=== PATIENT | female | born 1995 | race Caucasian/White ===

== ENCOUNTER 2017-03-11 09:58 | Emergency (ER) | payer BC, OTHER ==
[2017-03-11 10:12] VITALS: BP 138/95
--- NOTE | 2017-03-11 10:53 | UC ---
Throat Pain/Nasal [place] HPI - HPI Summary HPI Summary: feeling ill for one week worsening sore throat and fatigue yesterday and slept for 24 hours - History of Current Complaint Chief Complaint: UCGeneralIllness Stated Complaint: SORE THROAT COUGH Time Seen by Provider: 03/11/17 10:50 Hx Obtained From: Patient Hx Last Menstrual Period: depo ?: No Onset/Duration: Sudden Onset, Lasting Days - 6-7, Worse Since - 1 day Severity: Moderate Pain Intensity: 5 Pain Scale Used: 0-10 Numeric Cough: None Associated Signs & Symptoms: Positive: Negative - Allergies/Home Medications Allergies/Adverse Reactions: Allergies Allergy/AdvReac Type Severity Reaction Status Date / Time No Known Allergies Allergy Verified 03/11/17 10:06 PMH/Surg Hx/FS Hx/Imm Hx Previously Healthy: Yes - Surgical History Surgical History: None - Family History Known Family History: Positive: None Family History: no cardio vascular issues reported in family lineage - Social History Occupation: Employed Part-time, Student Lives: With Family Alcohol Use: Occasionally Substance Use Type: None Smoking Status (MU): Never Smoked Tobacco Have You Smoked in the Last Year: No Household Exposure Type: Cigarettes Review of Systems Constitutional: Negative Skin: Negative Eyes: Negative ENT: Sore Throat Respiratory: Negative Cardiovascular: Negative Gastrointestinal: Negative Genitourinary: Negative Motor: Negative Neurovascular: Negative Musculoskeletal: Negative Neurological: Negative Psychological: Negative All Other Systems Reviewed And Are Negative: Yes Physical Exam Triage Information Reviewed: Yes Appearance: Well-Appearing, No Pain Distress, Well-Nourished Vital Signs: Initial Vital Signs Temp 98.5 F 03/11/17 10:07 Pulse 69 03/11/17 10:07 Resp 16 03/11/17 10:07 BP 138/95 03/11/17 10:07 Pulse Ox 100 03/11/17 10:07 Vital Signs Reviewed: Yes Eye Exam: Normal Eyes: Positive: Conjunctiva Clear ENT Exam: Normal ENT: Positive: Normal ENT inspection, Hearing grossly normal, Pharyngeal erythema. Negative: Nasal congestion, Nasal drainage, Trismus, Muffled/hoarse voice Dental Exam: Normal Neck exam: Normal Neck: Positive: Supple, Nontender, No Lymphadenopathy Respiratory Exam: Normal Respiratory: Positive: Chest non-tender, Lungs clear, Normal breath sounds, No respiratory distress, No accessory muscle use Cardiovascular Exam: Normal Cardiovascular: Positive: RRR, No Murmur, Pulses Normal, Brisk Capillary Refill Musculoskeletal Exam: Normal Musculoskeletal: Positive: Strength Intact, ROM Intact, No Edema Neurological Exam: Normal Neurological: Positive: Alert, Muscle Tone Normal Psychological Exam: Normal Skin Exam: Normal Throat Pain/Nasal Course/Dx - Course Course Of Treatment: Amoxicillin, ibuprofen rest follow with pcp prn - Differential Dx/Diagnosis Differential Diagnosis/HQI/PQRI: Laryngitis, Pharyngitis, Sinusitis, URI Provider Diagnoses: Strep Pharyngitis Discharge - Discharge Plan Condition: Stable Disposition: HOME Prescriptions: Amoxicillin CAP* [Amoxicillin 500 MG CAP*] 500 mg PO Q12H #20 cap Patient Education Materials: Ibuprofen (By mouth), Amoxicillin (By mouth), Strep Throat (ED) Forms: *School Release, *Work Release Referrals: [facility] [Outside] - If Needed No Primary Care Phys,NOPCP [Primary Care Provider] -
== END 2017-03-11 11:38 | disposition home or self-care (01) ==
LOC: UCEAST 09:58
DX: J02.0 Streptococcal pharyngitis (principal)
CPT/HCPCS: 87651; 99212; G0463

== ENCOUNTER 2017-06-20 10:43 | Emergency (ER) | payer BC ==
[2017-06-20 10:53] VITALS: BP 148/92
--- NOTE | 2017-06-20 10:57 | UC ---
Complaint Female HPI - HPI Summary HPI Summary: pelvic pressure and bloating for 4 days---pressure after urination, no back pain , fevers, chills, nausea or vomiting - History Of Current Complaint Chief Complaint: UCAbdominalPain Stated Complaint: ABD PAIN Time Seen by Provider: 06/20/17 10:47 Hx Obtained From: Patient Hx Last Menstrual Period: depo ?: No Onset/Duration: Sudden Onset, Lasting Days - 4, Still Present Timing: Constant Severity Initially: Mild Severity Currently: Mild Pain Intensity: 4 Pain Scale Used: 0-10 Numeric Character: Burning - /pressure Aggravating Factor(s): Urination Alleviating Factor(s): Nothing Associated Signs And Symptoms: Positive: Negative - Allergies/Home Medications Allergies/Adverse Reactions: Allergies Allergy/AdvReac Type Severity Reaction Status Date / Time No Known Allergies Allergy Verified 06/20/17 10:53 PMH/Surg Hx/FS Hx/Imm Hx Previously Healthy: Yes - Surgical History Surgical History: None - Family History Known Family History: Positive: None Family History: patient is adopted - Social History Occupation: Employed Part-time, Student Lives: Alone Alcohol Use: Occasionally Substance Use Type: None Smoking Status (MU): Never Smoked Tobacco Have You Smoked in the Last Year: No Household Exposure Type: Cigarettes Review of Systems Constitutional: Negative Skin: Negative Eyes: Negative ENT: Negative Respiratory: Negative Cardiovascular: Negative Gastrointestinal: Abdominal Pain - pressure that is worse after voiding Genitourinary: Negative Motor: Negative Neurovascular: Negative Musculoskeletal: Negative Neurological: Negative Psychological: Negative Is Patient Immunocompromised?: No All Other Systems Reviewed And Are Negative: Yes Physical Exam Triage Information Reviewed: Yes Appearance: Well-Appearing, No Pain Distress, Well-Nourished Vital Signs: Initial Vital Signs Temp 98.4 F 06/20/17 10:50 Pulse 66 06/20/17 10:50 Resp 16 06/20/17 10:50 BP 148/92 06/20/17 10:50 Pulse Ox 100 06/20/17 10:50 Vital Signs Reviewed: Yes Eye Exam: Normal Eyes: Positive: Conjunctiva Clear ENT Exam: Normal ENT: Positive: Normal ENT inspection, Hearing grossly normal. Negative: Nasal congestion, Nasal drainage, Trismus, Muffled/hoarse voice Dental Exam: Normal Neck exam: Normal Neck: Positive: Supple, Nontender, No Lymphadenopathy Respiratory Exam: Normal Respiratory: Positive: Chest non-tender, Lungs clear, Normal breath sounds, No respiratory distress, No accessory muscle use Cardiovascular Exam: Normal Cardiovascular: Positive: RRR, No Murmur, Pulses Normal, Brisk Capillary Refill Abdominal Exam: Normal Abdomen Description: Positive: Nontender, No Organomegaly, Soft. Negative: CVA Tenderness (R), CVA Tenderness (L) Bowel Sounds: Positive: Present Musculoskeletal Exam: Normal Musculoskeletal: Positive: Strength Intact, ROM Intact, No Edema Neurological Exam: Normal Neurological: Positive: Alert, Muscle Tone Normal Psychological Exam: Normal Skin Exam: Normal Diagnostics - Radiology No standard instances Xray Interpretation: Positive (See Comments) - consistant with Pelvic Congestion Syndrome Radiology Interpretation Completed By: Radiologist Complaint Female Dx - Course Course Of Treatment: NSAIDS, follow with [facility] for Pelvic Congestion Syndrome and Urology for Hematuria, return for increase or worening of symptoms - Differential Dx/Diagnosis Differential Diagnosis/HQI/PQRI: Ovarian Torsion, Renal Colic, Retained Foreign Body, Ureteral Stone, Urinary Tract Infection Provider Diagnoses: Hematuria, Pelvic Congestion Syndrome Discharge - Discharge Plan Condition: Stable Disposition: HOME Prescriptions: Ibuprofen TAB* [Motrin TAB* 600 MG] 600 mg PO Q6H PRN #30 tab PRN Reason: pelvic pain Patient Education Materials: Hematuria (ED), Pelvic Pain in Women (ED) Referrals: [facility] [Provider Group] - 1 Week [facility] [Provider Group] - 1 Week Additional Instructions: Your Ultra Sound is most consistent with PELVIC CONGESTION SYNDROME. You also had blood in your urine that should be evaluated as well
--- NOTE | 2017-06-20 12:25 | RAD ---
HISTORY: Right lower quadrant pain COMPARISONS: None TECHNIQUE: Multiple transverse and longitudinal ultrasound images were obtained of the pelvis using grayscale, color Doppler, and spectral Doppler imaging using the endovaginal transducer. FINDINGS: UTERUS: The uterus measures 7.4 x 3 x 4.9 cm. The uterus is normal in shape, size, contour, and echotexture. There is prominence of the vasculature along the broad ligaments bilaterally. ENDOMETRIUM: The endometrial stripe is smooth. The endometrium measures 0.2 cm in thickness. CUL-DE-SAC: There is no free fluid within the cul-de-sac. RIGHT OVARY: The right ovary measures 2.3 x 1.4 x 2 cm. Normal arterial and venous waveforms are identifiable within the ovary on spectral Doppler imaging. LEFT OVARY: The left ovary measures 2.7 x 1.5 x 2.2 cm. Normal arterial and venous waveforms are identifiable within the ovary on spectral Doppler imaging. BLADDER: The bladder is not well visualized. OTHER: None IMPRESSION: 1. PROMINENCE OF THE VASCULATURE ALONG THE BROAD LIGAMENTS BILATERALLY. WHILE SPECIFIC, THIS CAN BE ASSOCIATED WITH PELVIC CONGESTION SYNDROME IN THE CORRECT CLINICAL SETTING. 2. OTHERWISE UNREMARKABLE ULTRASOUND OF THE PELVIS
== END 2017-06-20 12:42 | disposition home or self-care (01) ==
LOC: UCEAST 10:43
DX: R31.9 Hematuria, unspecified (principal); N94.89 Other specified conditions associated with female genital organs and menstrual cycle
CPT/HCPCS: 76830; 81003; 84702; 99212; G0463

== ENCOUNTER 2017-11-11 19:37 | Emergency (ER) | payer BC ==
[2017-11-11 19:55] VITALS: BP 137/95
--- NOTE | 2017-11-11 20:21 | UC ---
Sheila Shin Gabriel, scribed for Valentin Mosqueda MD on 11/11/17 at 2008 . Cardiac HPI - HPI Summary HPI Summary: This patient is a 22 year old F presenting to [facility] [place] with a chief complaint of intermittent CP since last night. The patient rates the tight pain 3/10 in severity. Patient reports anxiety. Patient denies recent illness, n/v/d, diaphoresis, SOB, dysuria, BM trouble, and sore throat. Pt states she has been under increased stress due to work. She has been having intermittent CP since August that is brought on by stress. Pt is on a BC shot and is a non smoker. - History of Current Complaint Chief Complaint: UCChestPain Stated Complaint: CHEST COMPLAINT Time Seen by Provider: 11/11/17 19:45 Hx Obtained From: Patient Hx Last Menstrual Period: on control Onset/Duration: Still Present Timing: Intermittent Episodes Lasting: Initial Severity: Mild Current Severity: Mild Pain Intensity: 3 Chest Pain Location: Diffuse Character: Tightness Associated Signs & Symptoms: Positive: Negative - recent illness, n/v/d, diaphoresis, SOB, dysuria, BM trouble, and sore throat., Anxiety - Allergy/Home Medications Allergies/Adverse Reactions: Allergies Allergy/AdvReac Type Severity Reaction Status Date / Time No Known Allergies Allergy Verified 11/11/17 19:55 Home Medications: Home Medications medroxyPROGESTERone ACETATE* [DEPO-Provera*] 11/11/17 [History] PMH/Surg Hx/FS Hx/Imm Hx Previously Healthy: Yes Psychological History: Anxiety - Surgical History Surgical History: None - Family History Known Family History: Positive: Unknown Family History: patient is adopted - Social History Occupation: Employed Full-time Lives: With Family Alcohol Use: Occasionally Substance Use Type: None Smoking Status (MU): Never Smoked Tobacco Have You Smoked in the Last Year: No Household Exposure Type: Cigarettes Review of Systems Cardiovascular: Chest Pain Psychological: Anxious All Other Systems Reviewed And Are Negative: Yes Physical Exam Triage Information Reviewed: Yes Vital Signs: Initial Vital Signs Temp 97.7 F 11/11/17 19:47 Pulse 80 11/11/17 19:47 Resp 16 11/11/17 19:47 BP 137/95 11/11/17 19:47 Pulse Ox 100 11/11/17 19:47 Vital Signs Reviewed: Yes - Additional Comments General: well-appearing, no pain distress Skin: warm, color reflects adequate perfusion, dry Head: normal Eyes: EOMI, ADRIANNA ENT: normal Neck: supple, nontender Respiratory: CTA, breath sounds present Cardiovascular: RRR Abdomen: soft, nontender Bowel: present Musculoskeletal: normal, strength/ROM intact Neurological: normal, sensory/motor intact, A&O x3 Psychological: affect/mood appropriate Diagnostics - EKG Cardiac Rate: Other Rate - EKG done at 1948 Cardiac Rhythm: Sinus: New - Sinus arrhythmia at 75 BPM , Other Rhythm: New - flipped T waves in V 1,2,3 Ectopy: None - Assessment/Plan Course Of Treatment: BP noted and advised to follow up with PCP. DISCUSSED NEED FOR FURTHER WORK UP FOR CHEST PAIN IN THE ED TO ENSURE PERTINENT LABS RESULTS SUCH TROPONIN AND DDIMER ARE CHECKED NOW. PATIENT DECLINED AMBULANCE TO ED. - Clinical Impression Provider Diagnoses: CHEST PAIN. elevated blood pressure without diagnoses of HTN, Discharge - Discharge Plan Condition: Stable Disposition: HOME Patient Education Materials: Chest Pain (ED) Referrals: No Primary Care Phys,NOPCP [Primary Care Provider] - Additional Instructions: GO DIRECTLY TO THE EMERGENCY DEPARTMENT FOR FURTHER EVALUATION OF YOUR CHEST PAIN. Your blood pressure was elevated during today's visit. Please follow up with your primary care provider in 1-2 weeks. The documentation as recorded by the Sheila negron Gabriel accurately reflects the service I personally performed and the decisions made by me, Valentin Mosqueda MD.
== END 2017-11-11 20:20 | disposition home or self-care (01) ==
LOC: UCEAST 19:37
DX: R07.9 Chest pain, unspecified (principal); R03.0 Elevated blood-pressure reading, without diagnosis of hypertension
CPT/HCPCS: 93005; 99212; G0463

== ENCOUNTER 2017-11-12 11:23 | Emergency (ER) | payer BC ==
--- NOTE | 2017-11-12 11:55 | ED ---
HPI Chest Pain - HPI Summary HPI Summary: 22-year-old female presents with chest pain for the past couple days. She states she was seen in urgent care last night and told to come here but she did not. She states her chest pain resolved last night. States feels like anxiety. She threw the center which has and she was having shortness of breath with it. She states it was constant but then yesterday became intermittent. She does states it was sharp in nature. She is on control. She states she's had this before. She denies any swelling or pain in her lower legs. She does not know her family history she is adopted. She has no medical conditions. She does not smoke. Nothing made it better or worse. - History of Current Complaint Chief Complaint: EDGeneral Time Seen by Provider: 11/12/17 11:29 Hx Last Menstrual Period: on control Pain Intensity: 0 - Allergy/Home Medications Allergies/Adverse Reactions: Allergies Allergy/AdvReac Type Severity Reaction Status Date / Time No Known Allergies Allergy Verified 11/11/17 19:55 PMH/Surg Hx/FS Hx/Imm Hx Endocrine/Hematology History: Denies: Hx Diabetes, Hx Thyroid Disease Cardiovascular History: Denies: Hx Hypertension Respiratory History: Denies: Hx Asthma, Hx Chronic Obstructive Pulmonary Disease (COPD) GI History: Denies: Hx Ulcer Psychiatric History: Reports: Hx Depression Denies: Hx Eating Disorder, Hx of Violent Episodes Against Others Infectious Disease History: No Infectious Disease History: Denies: Hx Clostridium Difficile, Hx Hepatitis, Hx Human Immunodeficiency Virus (HIV), Hx of Known/Suspected MRSA, Hx Shingles, Hx Tuberculosis, Hx Known/ Suspected VRE, Hx Known/Suspected VRSA, History Other Infectious Disease, Traveled Outside the [place] in Last 30 Days - Family History Known Family History: Positive: None, Unknown Family History: patient is adopted - Social History Alcohol Use: Occasionally Substance Use Type: Reports: None Smoking Status (MU): Never Smoked Tobacco Have You Smoked in the Last Year: No Review of Systems Negative: Fever Positive: Chest Pain - resolved Positive: Shortness Of Breath - resolved. Negative: Cough All Other Systems Reviewed And Are Negative: Yes Physical Exam Triage Information Reviewed: Yes Vital Signs On Initial Exam: Initial Vitals Temp Pulse Resp BP Pulse Ox 98.2 F 65 20 122/84 100 11/12/17 11:25 11/12/17 11:25 11/12/17 11:25 11/12/17 11:25 11/12/17 11:25 Vital Signs Reviewed: Yes Appearance: Positive: Well-Appearing Skin: Positive: Warm, Dry Head/Face: Positive: Normal Head/Face Inspection Eyes: Positive: Normal, Conjunctiva Clear Respiratory/Lung Sounds: Positive: Clear to Auscultation, Breath Sounds Present , Other - no reproducible chest pain Cardiovascular: Positive: Normal, RRR Abdomen Description: Positive: Nontender, Soft Bowel Sounds: Positive: Present Musculoskeletal: Positive: Normal Neurological: Positive: Normal Psychiatric: Positive: Normal Diagnostics - Vital Signs Vital Signs Temp Pulse Resp BP Pulse Ox 11/12/17 11:25 98.2 F 65 20 122/84 100 - Laboratory Result Diagrams: 11/12/17 11:49 11/12/17 11:49 Lab Statement: Any lab studies that have been ordered have been reviewed, and results considered in the medical decision making process. - EKG No standard instances Cardiac Rate: Bradycardia EKG Rhythm: Sinus Bradycardia EKG Interpretation: normal sinus bradycardia Chest Pain Course/Dx - Course Course Of Treatment: 22-year-old female presents with chest pain for the past couple days. She states she was seen in urgent care last night and told to come here but she did not. She states her chest pain resolved last night. States feels like anxiety. She threw the center which has and she was having shortness of breath with it. She states it was constant but then yesterday became intermittent. She does states it was sharp in nature. She is on control. She states she's had this before. She denies any swelling or pain in her lower legs. She does not know her family history she is adopted. She has no medical conditions. She does not smoke. Nothing made it better or worse. On exam lungs clear to auscultation. Abdomen soft nontender. Heart regular rate and rhythm. EKG shows sinus bradycardia. troponin neg. d dimer neg. since has been sx free for greater than 6 hours okay with just one troponin. will give referral to primary. patient understand and agrees with plan. - Chest Pain Differential Diagnosis/HQI/PQRI: Acute HI, Chest Wall, Pulmonary Embolism - Diagnoses Provider Diagnoses: Chest pain Discharge - Discharge Plan Condition: Good Disposition: HOME Patient Education Materials: Noncardiac Chest Pain (ED) Referrals: [facility] [place] [facility] REFERRAL [Outside] Additional Instructions: Establish care with primary Return to ED if develop any new or worsening symptoms
[2017-11-12 12:08] LABS: ABS Basophils 0 10^3/ul (0-0.2); ABS Eosinophils 0.1 10^3/ul (0-0.6); ABS Lymphocytes 2.2 10^3/ul (1.0-4.8); ABS Monocytes 0.3 10^3/ul (0-0.8); ABS Neutrophils 1.7 10^3/ul (1.5-7.7); ABS Nucleated RBC 0 10^3/ul; Hematocrit 40 % (35-47); Hemoglobin 13.7 g/dl (12.0-16.0); Mean Corpuscular HGB Conc 34 g/dl (31-36); Mean Corpuscular Hemoglobin 31 pg (27-31); Mean Corpuscular Volume 90 fL (80-97); Mean Platelet Volume 7 um3 (7.4-10.4); Nucleated Red Blood Cells % 0.1; Platelet Count 175 10^3/ul (150-450); Red Blood Count 4.43 10^6/ul (4.0-5.4); Red Cell Distribution Width 12 % (10.5-15); White Blood Count 4.4 10^3/ul (3.5-10.8)
[2017-11-12 12:25] LABS: EGFR Non-African American 68.7 (>60)
[2017-11-12 14:39] VITALS: BP 134/77
== END 2017-11-12 13:40 | disposition home or self-care (01) ==
LOC: ED 11:23
DX: R07.9 Chest pain, unspecified (principal)
CPT/HCPCS: 36415; 80053; 84484; 85025; 85379; 93005; 99282

== ENCOUNTER 2018-02-02 10:13 | Emergency (ER) | payer BC ==
[2018-02-02 10:32] VITALS: BP 126/85
--- NOTE | 2018-02-02 10:48 | UC ---
UC General HPI - HPI Summary HPI Summary: Patient presents with 11 day onset of various symptoms, she complains of subjective fevers, sore throat, stuffy nose, with 2 days of nausea and then vomiitng, which has now just become some nausea, generalized joint pain, and muscle pain. She states that she has increased fatigue. She denies any chest pain, cough, abdominal pain, dysuria, or hematuria. Denies any recent travel, or know ill contacts. - History of Current Complaint Chief Complaint: UCRespiratory Stated Complaint: FLU LIKE SYMPTOMS Time Seen by Provider: 02/02/18 10:21 Hx Obtained From: Patient Hx Last Menstrual Period: ON DEPO Onset/Duration: Gradual Onset, Lasting Days Onset Severity: Moderate Current Severity: Mild Pain Intensity: 0 Associated Signs & Symptoms: Positive: Nausea, Vomiting - Allergy/Home Medications Allergies/Adverse Reactions: Allergies Allergy/AdvReac Type Severity Reaction Status Date / Time No Known Allergies Allergy Verified 02/02/18 10:23 PMH/Surg Hx/FS Hx/Imm Hx Previously Healthy: Yes - Surgical History Surgical History: None - Family History Known Family History: Positive: None, Unknown Family History: patient is adopted - Social History Occupation: Employed Part-time, Student Lives: Alone Alcohol Use: Occasionally Substance Use Type: None Smoking Status (MU): Never Smoked Tobacco Have You Smoked in the Last Year: No Household Exposure Type: Cigarettes Review of Systems Constitutional: Fever, Fatigue Skin: Negative Eyes: Negative ENT: Sore Throat Respiratory: Negative Cardiovascular: Negative Gastrointestinal: Vomiting, Nausea Genitourinary: Negative Motor: Negative Neurovascular: Negative Musculoskeletal: Negative Neurological: Negative Psychological: Negative Is Patient Immunocompromised?: No All Other Systems Reviewed And Are Negative: Yes Physical Exam Triage Information Reviewed: Yes Appearance: Well-Appearing Vital Signs: Initial Vital Signs Temp 99.0 F 02/02/18 10:26 Pulse 68 02/02/18 10:26 Resp 16 02/02/18 10:26 BP 126/85 02/02/18 10:26 Pulse Ox 100 02/02/18 10:26 Vital Signs Reviewed: Yes Eye Exam: Normal ENT Exam: Normal Neck exam: Normal Neck: Positive: 1 Respiratory Exam: Normal Cardiovascular Exam: Normal Abdominal Exam: Normal Musculoskeletal Exam: Normal Neurological Exam: Normal Psychological Exam: Normal Skin Exam: Normal Course/Dx - Course Course Of Treatment: Patient presents with 11 day onset of various symptoms that have occurred over these days. She presents with normal vital signs, and has a nontoxic appearance. Influenza test was negative. I feel her symtpms most likely are from a viral syndrome, and I told her to rest, increase fluids, and take tylenol and or advil for myalgia and if her symtpoms worsen, persist or new symptoms develop she was told to go to the ER and or follow up with PCP. - Differential Dx - Multi-Symptom Differential Diagnoses: Other - Viral synrome Provider Diagnoses: Viral syndrome Discharge - Sign-Out/Discharge Documenting (check all that apply): Discharge/Admit/Transfer - Discharge Plan Condition: Stable Disposition: HOME Prescriptions: Ondansetron TAB* [Zofran 4 MG Tab*] 4 mg PO Q6H PRN #14 tab PRN Reason: Nausea Patient Education Materials: Viral Syndrome (ED) Referrals: No Primary Care Phys,NOPCP [Primary Care Provider] - - Billing Disposition and Condition Condition: STABLE Disposition: HOME
== END 2018-02-02 10:55 | disposition home or self-care (01) ==
LOC: UCEAST 10:13
DX: B34.9 Viral infection, unspecified (principal)
CPT/HCPCS: 87502; 99212; G0463

== ENCOUNTER 2019-03-06 08:06 | Emergency (ER) | payer BC ==
[2019-03-06 08:13] VITALS: BP 121/81
--- NOTE | 2019-03-06 09:21 | UC ---
Complaint Female HPI - HPI Summary HPI Summary: 3 DAYS OF DYSURIA, URINARY FREQUENCY AND URGENCY. NO FEVER, NAUSEA OR BACK PAIN. - History Of Current Complaint Chief Complaint: UCGU Stated Complaint: URINARY ISSUE Time Seen by Provider: 03/06/19 09:14 Hx Obtained From: Patient Hx Last Menstrual Period: 02/28/19 Onset/Duration: Gradual Onset, Lasting Days, Still Present Severity Initially: Moderate Severity Currently: Moderate Pain Intensity: 4 Pain Scale Used: 0-10 Numeric Character: Burning Aggravating Factor(s): Urination Alleviating Factor(s): Nothing Associated Signs And Symptoms: Negative: Fever, Back Pain, Vaginal Bleeding/ Discharge, Nausea - Allergies/Home Medications Allergies/Adverse Reactions: Allergies Allergy/AdvReac Type Severity Reaction Status Date / Time No Known Allergies Allergy Verified 03/06/19 08:14 PMH/Surg Hx/FS Hx/Imm Hx Previously Healthy: Yes - Surgical History Surgical History: None - Family History Known Family History: Positive: Unknown Family History: patient is adopted - Social History Alcohol Use: Occasionally Substance Use Type: None Smoking Status (MU): Never Smoked Tobacco Have You Smoked in the Last Year: No Household Exposure Type: Cigarettes Review of Systems All Other Systems Reviewed And Are Negative: Yes Constitutional: Positive: Negative Respiratory: Positive: Negative Cardiovascular: Positive: Negative Gastrointestinal: Positive: Negative Genitourinary: Positive: Dysuria, Frequency, Urgency Physical Exam Triage Information Reviewed: Yes Appearance: Well-Appearing, No Pain Distress, Well-Nourished Vital Signs: Initial Vital Signs Temp 97.3 F 03/06/19 08:10 Pulse 65 03/06/19 08:10 Resp 16 03/06/19 08:10 BP 121/81 03/06/19 08:10 Pulse Ox 100 03/06/19 08:10 Laboratory Tests 03/06/19 03/06/19 08:29 08:34 POC Urine Color Light yellow POC Urine Clarity Slightly cloudy POC Urine pH 6.0 POC Ur Specif [place] <= 1.005 L POC Urine Protein Negative POC Ur Glucose (UA) Negative POC Urine Ketones Negative POC Urine Blood Trace-intact A POC Urine Nitrite Negative POC Urine Bilirubin Negative POC Urine Urobilinogen 0.2 POC U Leukocyte Esteras 2+ A POC Ur Test Negative Eyes: Positive: Conjunctiva Clear ENT: Positive: Hearing grossly normal Neck: Positive: Supple Respiratory: Positive: No respiratory distress, No accessory muscle use Cardiovascular: Positive: Pulses Normal Abdomen Description: Positive: Nontender, Soft. Negative: CVA Tenderness (R), CVA Tenderness (L), Distended, Guarding Musculoskeletal: Positive: No Edema Neurological: Positive: Alert Psychological: Positive: Age Appropriate Behavior Skin: Negative: Rashes Complaint Female Dx - Differential Dx/Diagnosis Provider Diagnosis: UTI (urinary tract infection) Discharge - Sign-Out/Discharge Documenting (check all that apply): Patient Departure All imaging exams completed and their final reports reviewed: No Studies - Discharge Plan Condition: Stable Disposition: HOME Prescriptions: Phenazopyridine TAB* [Pyridium TAB*] 200 mg PO TID #6 tab Sulfamethox/Trimethoprim DS* [Bactrim DS 800/160 TAB*] 1 tab PO BID #10 tab Patient Education Materials: Urinary Tract Infection in Women (ED) Referrals: [facility] [Outside] - If Needed Additional Instructions: URINE TEST POSITIVE TODAY. WILL COVER FOR UTI WITH ANTIBIOTICS TWICE DAILY FOR 5 DAYS. SPECIMEN HAS BEEN SENT FOR CULTURE AND WE WILL CALL YOU IF YOUR MEDICATION NEEDS TO BE CHANGED. BE SURE TO STAY WELL-HYDRATED. CALL THE NUMBER BELOW FOR ASSISTANCE IN ESTABLISHING WITH A PCP An additional resource available to assist in finding the appropriate physician for your health care needs is the [facility] ([facility]). You may contact them by calling [phone]. - Billing Disposition and Condition Condition: STABLE Disposition: Home
[2019-03-06] MEDS ORDERED: Phenazopyridine TAB* 100 MG PO ONE (09:30)
== END 2019-03-06 09:38 | disposition home or self-care (01) ==
LOC: UCEAST 08:06
DX: N39.0 Urinary tract infection, site not specified (principal)
CPT/HCPCS: 81003; 84702; 87077; 87086; 87186; 99212; G0463

== ENCOUNTER 2019-08-17 13:44 | Emergency (ER) | payer BC ==
--- OUTSIDE RECORDS SUMMARY | 2019-08-17 13:51 | XMS REPORT | Continuity of Care Document ---
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 Problems Description No Information Available Social History Type Date Description Comments Sex Unknown Tobacco Use Start: Unknown Nonsmoker ETOH Use Denies alcohol use Recreational Drug Use Denies Drug Use Tobacco Use Start: Unknown Patient has never smoked Smoking Status Reviewed: 07/25/19 Patient has never smoked Exercise Type/Frequency Exercises regularly Seat Belt/Car Seat Always uses seat belt Allergies, Adverse Reactions, Alerts Description No Known Drug Allergies Medications Active Medications SIG Qnty Indications Ordering Provider Date Angella Hernandez 1 by mouth three 60caps R05 Atul Ley, 07/25/2019 100mg times a day as M.D. Capsules needed Azithromycin take 2 tablets 6tabs R05 Atul Ley, 07/25/2019 250mg (500 mg) day 1 M.D. Tablets then 250 mg x 4 days. Immunizations CPT Code Status Date Vaccine Lot # [id number] Given 07/15/2015 Influenza Vac, Quadrivalent, Slit Virus, Im [id number] Given 05/22/2010 Tdap Tetanus, W Pertussis Vital Signs Date Vital Result Comment 07/25/2019 11:17am BP Systolic 112 mmHg BP Diastolic 80 mmHg Heart Rate 66 /min Body Temperature 97.3 F Height 63 inches 5'3" Weight 128.00 lb BMI (Body Mass Index) 22.7 kg/m2 07/15/2015 11:01am BP Systolic 116 mmHg BP Diastolic 74 mmHg Heart Rate 54 /min Body Temperature 98.2 F Height 63 inches 5'3" Weight 123.00 lb BMI (Body Mass Index) 21.8 kg/m2 Results Description No Information Available Procedures Description No Information Available Medical Devices Description No Information Available Encounters Description No Information Available Assessments Date Code Description Provider 07/25/2019 R05 Cough KIRILL Servin Plan of Treatment Future Appointment(s):11/04/2019 1:00 pm - Lucero Webster M.D. at [facility]07/25/2019 - Kavya Zavala, PAR05 CoughNew Medication:Tessalon Perles 100 mg - 1 by mouth three times a day as neededAzithromycin 250 mg - take 2 tablets (500 mg) day 1 then 250 mg x 4 days.Comments:Half of your body weight in ounces of water everyday Lots of water, rest, good nutrition- fruits high in Vitamin C. Tessalon pearls for the cough when it isn't stopping. Start Vitamin C 2000 mg for thenext week Vitamin D 800-100 units for the winter Elderberry cold and flu tablets also help decrease cough and are anti viral If no better by early next, start antibiotic as printed for you Return for physical exam or sooner if you aren't feeling betterAllComments:PCMHMedication Management Patient Understands medications he's taking? Yes Are there Barriers to Adherence? No Has the patient been asked about herbal supplements and therapies, and OTC meds? Yes Care Plan1. Patient has been queried about patient's goals/preferences and functional/lifestyle goals at relevant visits. Yes If relevant, describe: N/A2. Treatment goals as explained to the patient: above3. Are there barriers to meeting treatment goals ? No If Yes, please describe:4. Self-Management goals as described to the patient: Yes As always, we strongly encourage a healthy diet and making physical activity a part of your every day life. If you have questions about how or where to start, please contact the office. Functional Status Description No Information Available Mental Status Description No Information Available Referrals Description No Information Available
[2019-08-17 14:03] VITALS: BP 120/72
--- NOTE | 2019-08-17 14:59 | UC ---
Complaint Female HPI - HPI Summary HPI Summary: 24-year-old female presents with 4 day history of dysuria, frequency, urgency, and suprapubic cramping. Patient does not get her menstrual period due to the Implanon implant. States she is not currently sexually active. Denies fever, chills, back or flank pain, nausea, vomiting, hematuria, vaginal discharge, or abnormal vaginal bleeding. - History Of Current Complaint Chief Complaint: UCGU Stated Complaint: URINARY ISSUE Time Seen by Provider: 08/17/19 14:35 Hx Obtained From: Patient Hx Last Menstrual Period: i don't get them Pain Intensity: 2 - Allergies/Home Medications Allergies/Adverse Reactions: Allergies Allergy/AdvReac Type Severity Reaction Status Date / Time No Known Allergies Allergy Verified 08/17/19 14:03 PMH/Surg Hx/FS Hx/Imm Hx Previously Healthy: Yes - Denies significant PMH - Surgical History Surgical History: None - Family History Known Family History: Positive: Non-Contributory Family History: patient is adopted - Social History Occupation: Employed Full-time Lives: With Family Alcohol Use: Occasionally Substance Use Type: None Smoking Status (MU): Never Smoked Tobacco Have You Smoked in the Last Year: No Household Exposure Type: Cigarettes Review of Systems All Other Systems Reviewed And Are Negative: Yes Constitutional: Negative: Fever, Chills Respiratory: Positive: Negative Cardiovascular: Positive: Negative Gastrointestinal: Positive: Abdominal Pain. Negative: Vomiting, Diarrhea, Nausea Genitourinary: Positive: Dysuria, Frequency, Urgency. Negative: Hematuria, Vaginal/Penile Burning, Vaginal/Penile Itching, Vaginal/Penile Discharge, Ulceration/Lesion, Abnormal Bleeding Neurological: Positive: Negative Psychological: Positive: Negative Is Patient Immunocompromised?: No Physical Exam - Summary Physical Exam Summary: GENERAL APPEARANCE: Well developed, well nourished, alert and cooperative, and appears to be in no acute distress. CARDIAC: Normal S1 and S2. No S3, S4 or murmurs. Rhythm is regular. There is no peripheral edema, cyanosis or pallor. Extremities are warm and well perfused. Capillary refill is less than 2 seconds. Peripheral pulses intact. LUNGS: Clear to auscultation without rales, rhonchi, wheezing or diminished breath sounds. ABDOMEN: Positive bowel sounds. Soft, nondistended, nontender. No guarding or rebound. No masses or hepatosplenomegally. No CVA tenderness. MUSKULOSKELETAL: ROM intact to all extremities. No joint erythema or tenderness. Normal muscular development. Normal gait. SKIN: Skin normal color, texture and turgor with no lesions or eruptions. Triage Information Reviewed: Yes Vital Signs: Initial Vital Signs Temp 98.8 F 08/17/19 14:00 Pulse 56 08/17/19 14:00 Resp 18 08/17/19 14:00 BP 120/72 08/17/19 14:00 Pulse Ox 100 08/17/19 14:00 Vital Signs Reviewed: Yes Complaint Female Dx - Course Course Of Treatment: 24-year-old female presents with 4 day history of dysuria, frequency, urgency, and suprapubic cramping. Patient does not get her menstrual period due to the Implanon implant. States she is not currently sexually active. Denies fever, chills, back or flank pain, nausea, vomiting, hematuria, vaginal discharge, or abnormal vaginal bleeding. Afebrile. Vital signs stable. Patient's exam was overall unremarkable. [id number] urinalysis showed trace blood otherwise was within normal limits. Urine culture pending. Reviewed results with the patient. We discussed empiric treatment for UTI based on her symptoms versus targeted treatment based on urinary culture results including the risks and benefits of each and the patient is electing for the former. We'll start her on Bactrim DS 1 tablet twice daily for 3 days as well as give her a prescription for Pyridium 100 mg 3 times a day 2 days to help with discomfort. She is to return here or follow up with primary care provider in 3-5 days if symptoms are not improving. Anticipatory guidance and warning symptoms were reviewed with the patient. Verbalizes understanding and agrees with plan of care. - Differential Dx/Diagnosis Differential Diagnosis/HQI/PQRI: Pelvic Inflammatory Disease, , Sexually Transmitted Disease, Urinary Tract Infection Provider Diagnosis: Dysuria Discharge ED - Sign-Out/Discharge Documenting (check all that apply): Patient Departure All imaging exams completed and their final reports reviewed: No Studies - Discharge Plan Condition: Stable Disposition: HOME Prescriptions: Phenazopyridine TAB* [Pyridium 100 mg TAB*] 100 mg PO TID #6 tab Sulfamethox/Trimethoprim DS* [Bactrim DS 800/160 TAB*] 1 tab PO BID #6 tab Patient Education Materials: Dysuria (ED) Referrals: No Primary Care Phys,NOPCP [Primary Care Provider] - Additional Instructions: Your urine test in the clinic today did not show evidence of a urinary tract infection however based on your symptoms you have chosen to start treatment for a possible urinary tract infection. We send a urine culture today to see if any bacteria grow out and make sure the antibiotic you were prescribed is appropriate to treat if there is evidence of an infection. It will take 48-72 hours to get these results. We will contact you if there is any change in your treatment plan. Start Bactrim DS 1 tab twice a day for 3 days. Take Pyridium 1 tablet every 8 hours for next 2 days to help with the discomfort. This medication will turn your urine an orange color. Drink plenty of fluids. To help prevent urinary tract infections: 1) Be sure to wipe from front to back. 2) Urinate immediately after any sexual intercourse. 3) Avoid taking bubble baths. Return here of follow up with your primary care provider in 3-5 days if symptoms persist. Seek immediate medical attention in the emergency room if you develop fever greater than 100.5 F, have severe abdominal pain, persistent vomiting, or any worsening of symptoms. - Billing Disposition and Condition Condition: STABLE Disposition: Home - Attestation Statements Provider Attestation: Per institutional requirements, I have reviewed the chart, however, I was not consulted specifically or made aware of this patient by the midlevel provider. I did not personally evaluate, interact with , or disposition this patient.
== END 2019-08-17 15:35 | disposition home or self-care (01) ==
LOC: UCEAST 13:44
DX: R30.0 Dysuria (principal); R35.0 Frequency of micturition; R39.15 Urgency of urination; R10.9 Unspecified abdominal pain
CPT/HCPCS: 81003; 87077; 87086; 87186; 99212; G0463